=== PATIENT | male | born 1985 | race Caucasian/White ===

== ENCOUNTER 2018-03-17 00:14 | Emergency (ER) | payer OTHER ==
[~2018-03-17] VITALS: Ht 193 cm; Wt 176.9 kg
--- NOTE | ~2018-03-17 | EKG ---
[place], [place] ELECTROCARDIOGRAM REPORT NAME: BLAIR DOW UNIT #: [id number] ROOM: DOCTOR: EPIPHANY DRAFT REPORT BIRTHDATE: [birth year] [facility] Test Date: 2018-03-17 Test Time: 01:43:13 Pat Name: BLAIR DOW Department: ER Room: Gender: Nutritionists: Gildardo Palencia : 1985 Requested By: NOMAN MARES Order Number: [id number] Reading MD: Candido Quesada MD Measurements Intervals [place] Rate: 110 P: 48 [place]: 131 QRS: 24 QRSD: 105 T: -66 QT: 330 QTc: 447 Interpretive Statements Sinus tachycardia LVH Nonspecific repol abnormality, diffuse leads Baseline wander in lead(s) V2 No previous ECG available for comparison Electronically Signed On 03-18-2018 10:45:18 PDT by Candido Quesada MD CM:EKGRPT:ELECTROCARDIOGRAM REPORT [id number] NOMAN BURR DRAFT REPORT NOMAN MARES MD
[~2018-03-17 00:14] MED LIST: AMOXICILLIN500 MG PO; CATAFLAM50 MG PO; CLINDAMYCIN150 MG PO; HYDROCODONE BIT1 T11 PO; LISINOPRIL/HCTZ1 TAB PO; LISINOPRIL10 M1 PO; Motrin,Rufen800 MG PO; NAPROSYN500 MG PO; NICODERM21 MG/24 H T; TRAMADOL HCL50 MG PO; TRIMOX500 MG PO; ZESTORETIC 12.51 TA1 PO; ZESTORETIC 12.51 TA2 PO; ZITHROMAX Z PA250 MG PO; ZOFRAN ODT4 MG SL
[2018-03-17 01:37] LABS: BASO # 0.1 10*3/uL (0.0-0.1); BASO % 0.7 % (0.0-1.0); EOS # 0.4 10*3/uL (0.0-0.4); EOS % 3.2 % (1.0-4.0); HEMATOCRIT 43.9 % (42.0-52.0); HEMOGLOBIN 14.6 g/dl (14.0-18.0); LYMPH % 18.3 % (27.0-41.0); MEAN CELL VOLUME 89.4 fl (80.0-94.0); MEAN CORPUSCULAR HGB 29.7 pg (27.0-31.0); MEAN CORPUSCULAR HGB CONC 33.3 g/dl (33.0-37.0); MEAN PLATELET VOLUME 10.4 fl (9.6-12.3); MONO # 1.1 10*3/uL (0.1-1.0); MONO % 9.7 % (3.0-9.0); NEUT # 7.4 10*3/uL (2.3-7.9); NEUT % 67.6 % (47.0-73.0); PLATELET COUNT AUTOMATED 270 10*3/uL (130-400); RED BLOOD COUNT 4.91 10*6/uL (4.50-5.90); RED CELL DISTRI WIDTH 14.6 % (0-14.5)
[2018-03-17 01:54] LABS: ALBUMIN 3.7 gm/dl (3.1-4.5); ALKALINE PHOSPHATASE 163 U/L (45-117); BUN 17 mg/dl (7-24); CHLORIDE 106 mmol/L (98-107); CREATININE 1.29 mg/dL (0.70-1.30); POTASSIUM 3.9 mmol/L (3.5-5.1); SGOT/AST 17 IU/L (3-35); SGPT/ALT 28 U/L (12-78); SODIUM 140 mmol/L (136-145); TOTAL PROTEIN 8.2 gm/dL (6.4-8.2)
[2018-03-17 01:56] LABS: TROPONIN I < 0.015 ng/ml (<0.045)
[2018-03-17 02:23] VITALS: BP 155/98
[2018-03-17] MEDS ORDERED: ZITHROMAX250 MG PO (02:26)
[2018-03-17] MEDS ORDERED: PROAIR HFA8.5 GM INH (02:26)
[2018-03-17] MEDS ORDERED: PREDNISONE10 MG PO (02:26)
== END 2018-03-17 03:35 | disposition home or self-care (01) ==
LOC: ED 00:14
PROVIDERS: Emergency Medicine Emergency Medical Services
DX: J20.9 Acute bronchitis, unspecified (principal); I10 Essential (primary) hypertension; J45.909 Unspecified asthma, uncomplicated; E78.1 Pure hyperglyceridemia; E66.01 Morbid (severe) obesity due to excess calories; F17.200 Nicotine dependence, unspecified, uncomplicated; Z68.42 Body mass index [BMI] 45.0-49.9, adult; Z98.890 Other specified postprocedural states

== ENCOUNTER 2018-08-21 04:21 | Emergency (ER) | payer OTHER ==
--- NOTE | ~2018-08-21 | EKG ---
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1985 Requested By: NOMAN MARES Order Number: [id number] Reading MD: Althea Montelongo Measurements Intervals [place] Rate: 87 P: 4 [place]: 149 QRS: 3 QRSD: 112 T: 209 QT: 354 QTc: 426 Interpretive Statements Sinus rhythm Borderline intraventricular conduction delay Lateral ST/T CHANGES Compared to ECG 03/17/2018 01:43:13 Possible ischemia now present Sinus tachycardia no longer present Left ventricular hypertrophy no longer present Electronically Signed On 08-27-2018 11:53:54 PST by Althea Montelongo CM:EKGRPT:ELECTROCARDIOGRAM REPORT [id number] NOMAN MARES MD EPIPHANY DRAFT REPORT NOMAN MARES MD
[~2018-08-21 04:21] MED LIST changes: +PREDNISONE10 MG PO; +PROAIR HFA8.5 GM INH; +ZITHROMAX250 MG PO
[2018-08-21 04:50] LABS: BASO # 0.1 10*3/uL (0.0-0.1); BASO % 0.5 % (0.0-1.0); EOS # 0.3 10*3/uL (0.0-0.4); EOS % 2.4 % (1.0-4.0); HEMATOCRIT 49.7 % (42.0-52.0); HEMOGLOBIN 16.4 g/dl (14.0-18.0); LYMPH # 3.5 10*3/uL (1.3-4.4); LYMPH % 30.2 % (27.0-41.0); MEAN CELL VOLUME 90.2 fl (80.0-94.0); MEAN CORPUSCULAR HGB 29.8 pg (27.0-31.0); MEAN PLATELET VOLUME 10.4 fl (9.6-12.3); MONO # 0.8 10*3/uL (0.1-1.0); MONO % 6.5 % (3.0-9.0); NEUT % 59.8 % (47.0-73.0); PLATELET COUNT AUTOMATED 285 10*3/uL (130-400); RED BLOOD COUNT 5.51 10*6/uL (4.50-5.90); RED CELL DISTRI WIDTH 14.4 % (0-14.5); WHITE BLOOD COUNT 11.7 10*3/uL (4.8-10.8)
[2018-08-21 05:00] LABS: ACT PARTIAL THROMBO TIME 28.3 SECONDS (20.8-31.5)
[2018-08-21 05:09] LABS: ALBUMIN 3.8 gm/dl (3.1-4.5); ALKALINE PHOSPHATASE 145 U/L (45-117); BUN 14 mg/dl (7-24); CHLORIDE 108 mmol/L (98-107); CREATININE 1.11 mg/dL (0.70-1.30); LIPASE 105 U/L (73-393); POTASSIUM 3.5 mmol/L (3.5-5.1); SGOT/AST 14 IU/L (3-35); SGPT/ALT 23 U/L (12-78); SODIUM 139 mmol/L (136-145); TOTAL PROTEIN 8.6 gm/dL (6.4-8.2); TROPONIN I < 0.015 ng/ml (<0.045)
[2018-08-21 06:41] LABS: BILIRUBIN NEGATIVE (NEGATIVE); BLOOD NEGATIVE (NEGATIVE); CLARITY CLEAR (CLEAR); COLOR YELLOW (YELLOW); GLUCOSE NEGATIVE (NEGATIVE); KETONE NEGATIVE (NEGATIVE); LEUKO ESTERASE NEGATIVE (NEGATIVE); NITRITE NEGATIVE (NEGATIVE); PH 5.5 (5.0-9.0); SPECIFIC GRAVITY 1.025 (1.005-1.030); UROBILINOGEN 0.2 E.U./dl (0.2-1.0)
[2018-08-21 07:16] LABS: EPITHELIAL CELLS 0-2; MUCOUS 2+; WBC 0-2 wbc/hpf (0-5)
[2018-08-21] MEDS ORDERED: ZESTRIL20 MG PO (07:20)
[2018-08-21 07:42] VITALS: BP 142/94
== END 2018-08-21 07:48 | disposition left against medical advice (07) ==
LOC: ED 04:21
PROVIDERS: Emergency Medicine Emergency Medical Services
DX: I16.0 Hypertensive urgency (principal); J45.909 Unspecified asthma, uncomplicated; E78.2 Mixed hyperlipidemia; F17.210 Nicotine dependence, cigarettes, uncomplicated; E66.01 Morbid (severe) obesity due to excess calories; Z68.42 Body mass index [BMI] 45.0-49.9, adult

== ENCOUNTER 2019-02-25 20:03 | Emergency (ER) | payer OTHER ==
[~2019-02-25] VITALS: Ht 193 cm; Wt 163.3 kg
[~2019-02-25 20:03] MED LIST changes: +ZESTRIL20 MG PO
[2019-02-25 20:04] VITALS: BP 192/120
[2019-02-25] MEDS ORDERED: AUGMENTIN 875875 MG PO (20:32)
== END 2019-02-25 20:43 | disposition home or self-care (01) ==
LOC: ED 20:03
DX: H66.93 Otitis media, unspecified, bilateral (principal); H60.91 Unspecified otitis externa, right ear; F17.200 Nicotine dependence, unspecified, uncomplicated; I10 Essential (primary) hypertension; J45.909 Unspecified asthma, uncomplicated; E78.2 Mixed hyperlipidemia; E66.01 Morbid (severe) obesity due to excess calories; Z68.42 Body mass index [BMI] 45.0-49.9, adult; Z79.899 Other long term (current) drug therapy

== ENCOUNTER 2019-04-13 20:31 | Emergency (ER) | payer OTHER ==
[~2019-04-13] VITALS: Ht 190.5 cm; Wt 167.8 kg
--- NOTE | ~2019-04-13 | EKG ---
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
[~2019-04-13 20:31] MED LIST changes: +AUGMENTIN 875875 MG PO
[2019-04-13 21:19] LABS: BASO # 0.1 10*3/uL (0.0-0.1); BASO % 0.5 % (0.0-1.0); EOS # 0.3 10*3/uL (0.0-0.4); EOS % 2.4 % (1.0-4.0); HEMATOCRIT 45.2 % (42.0-52.0); HEMOGLOBIN 14.8 g/dl (14.0-18.0); LYMPH # 3.6 10*3/uL (1.3-4.4); LYMPH % 27.1 % (27.0-41.0); MEAN CELL VOLUME 91.5 fl (80.0-94.0); MEAN CORPUSCULAR HGB CONC 32.7 g/dl (33.0-37.0); MEAN PLATELET VOLUME 10.4 fl (9.6-12.3); MONO % 7.6 % (3.0-9.0); NEUT # 8.2 10*3/uL (2.3-7.9); NEUT % 61.7 % (47.0-73.0); PLATELET COUNT AUTOMATED 309 10*3/uL (130-400); RED BLOOD COUNT 4.94 10*6/uL (4.50-5.90); RED CELL DISTRI WIDTH 14.7 % (0-14.5); WHITE BLOOD COUNT 13.2 10*3/uL (4.8-10.8)
[2019-04-13 21:29] LABS: ACT PARTIAL THROMBO TIME 29.5 SECONDS (20.0-32.1); INTERNATIONAL NORM RATIO 0.9 (2.0-3.5)
[2019-04-13 21:36] LABS: ALKALINE PHOSPHATASE 139 U/L (45-117); BUN 16 mg/dl (7-24); CHLORIDE 109 mmol/L (98-107); CREATININE 1.24 mg/dL (0.70-1.30); LIPASE 84 U/L (73-393); SGOT/AST 15 IU/L (3-35); SGPT/ALT 23 U/L (12-78); SODIUM 140 mmol/L (136-145); TOTAL PROTEIN 8.3 gm/dL (6.4-8.2)
[2019-04-13 21:39] LABS: TROPONIN I < 0.015 ng/ml (<0.045)
[2019-04-13 23:14] VITALS: BP 187/110
[2019-04-13] MEDS ORDERED: NORVASC5 MG PO (23:56)
[2019-04-13] MEDS ORDERED: AUGMENTIN 875-875 MG PO (23:56)
== END 2019-04-14 00:28 | disposition left against medical advice (07) ==
LOC: ED 20:31
PROVIDERS: Nurse Practitioner Family
DX: L04.0 Acute lymphadenitis of face, head and neck (principal); I10 Essential (primary) hypertension; F17.200 Nicotine dependence, unspecified, uncomplicated; Z79.899 Other long term (current) drug therapy; Z79.2 Long term (current) use of antibiotics

== ENCOUNTER 2019-06-20 04:51 | Emergency (ER) | payer OTHER ==
[~2019-06-20] VITALS: Ht 193 cm; Wt 163.3 kg
--- NOTE | ~2019-06-20 | EKG ---
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
[~2019-06-20 04:51] MED LIST changes: +AUGMENTIN 875-875 MG PO; +NORVASC5 MG PO
[2019-06-20 05:57] LABS: BASO # 0.1 10*3/uL (0.0-0.1); BASO % 0.6 % (0.0-1.0); EOS # 0.4 10*3/uL (0.0-0.4); EOS % 2.8 % (1.0-4.0); HEMATOCRIT 43.7 % (42.0-52.0); HEMOGLOBIN 14.4 g/dl (14.0-18.0); LYMPH # 4.4 10*3/uL (1.3-4.4); LYMPH % 33.4 % (27.0-41.0); MEAN CELL VOLUME 90.3 fl (80.0-94.0); MEAN CORPUSCULAR HGB 29.8 pg (27.0-31.0); MEAN PLATELET VOLUME 10.8 fl (9.6-12.3); MONO # 1.1 10*3/uL (0.1-1.0); NEUT # 7.2 10*3/uL (2.3-7.9); NEUT % 54.6 % (47.0-73.0); PLATELET COUNT AUTOMATED 314 10*3/uL (130-400); RED BLOOD COUNT 4.84 10*6/uL (4.50-5.90); RED CELL DISTRI WIDTH 14.6 % (0-14.5); WHITE BLOOD COUNT 13.2 10*3/uL (4.8-10.8)
[2019-06-20 06:06] LABS: INTERNATIONAL NORM RATIO 0.9 (2.0-3.5)
[2019-06-20 06:16] LABS: ALBUMIN 3.7 gm/dl (3.1-4.5); ALKALINE PHOSPHATASE 158 U/L (45-117); BUN 22 mg/dl (7-24); CHLORIDE 106 mmol/L (98-107); CREATININE 1.37 mg/dL (0.70-1.30); POTASSIUM 3.6 mmol/L (3.5-5.1); SGOT/AST 17 IU/L (3-35); SGPT/ALT 27 U/L (12-78); SODIUM 138 mmol/L (136-145); TOTAL PROTEIN 8.1 gm/dL (6.4-8.2)
[2019-06-20 06:28] LABS: TROPONIN I < 0.015 ng/ml (<0.045)
[2019-06-20 06:30] VITALS: BP 163/91
[2019-06-20] MEDS ORDERED: ZESTRIL20 MG PO (09:21)
[2019-06-20 09:38] LABS: URINE AMPHETAMINES < 1000 (1000ng/ml); URINE BARBITURATES < 200 (200ng/ml); URINE BENZODIAZEPINES < 200 (200ng/ml); URINE CANNABINOIDS (THC) < 50 (50ng/ml); URINE COCAINE < 300 (300ng/ml); URINE METHADONE < 300 (300ng/ml); URINE OPIATES < 300 (300ng/ml)
[2019-06-20 09:42] LABS: URINE PHENCYCLIDINE < 25 (25ng/ml)
== END 2019-06-20 09:32 | disposition left against medical advice (07) ==
LOC: ED 04:51
PROVIDERS: Emergency Medicine
DX: M79.605 Pain in left leg (principal); I10 Essential (primary) hypertension; R22.41 Localized swelling, mass and lump, right lower limb; J45.909 Unspecified asthma, uncomplicated; E78.1 Pure hyperglyceridemia; E66.01 Morbid (severe) obesity due to excess calories; F17.200 Nicotine dependence, unspecified, uncomplicated; Z79.2 Long term (current) use of antibiotics; Z79.899 Other long term (current) drug therapy; Z68.42 Body mass index [BMI] 45.0-49.9, adult

== ENCOUNTER 2021-04-07 17:27 | Emergency (ER) | payer OTHER ==
[~2021-04-07] VITALS: Ht 193 cm; Wt 158.8 kg
[2021-04-07 17:40] VITALS: BP 146/81
== END 2021-04-07 20:33 | disposition left against medical advice (07) ==
LOC: ED 17:27
DX: R00.2 Palpitations (principal); Z53.21 Procedure and treatment not carried out due to patient leaving prior to being seen by health care provider

== ENCOUNTER 2022-01-09 23:21 | Emergency (ER) | payer OTHER ==
[~2022-01-09] VITALS: Ht 193 cm; Wt 181.4 kg
[2022-01-09 23:25] VITALS: BP 168/101
== END 2022-01-10 01:43 | disposition home or self-care (01) ==
LOC: ED 23:21
DX: S93.401A Sprain of unspecified ligament of right ankle, initial encounter (principal); F17.200 Nicotine dependence, unspecified, uncomplicated; X58.XXXA Exposure to other specified factors, initial encounter; Y93.89 Activity, other specified; Y92.89 Other specified places as the place of occurrence of the external cause; Y99.8 Other external cause status

== ENCOUNTER 2022-04-08 23:27 | Emergency (ER) | payer OTHER ==
[2022-04-08 23:37] VITALS: BP 175/86
== END 2022-04-09 00:49 | disposition home or self-care (01) ==
LOC: ED 23:27
DX: F41.9 Anxiety disorder, unspecified (principal); Z79.899 Other long term (current) drug therapy

== ENCOUNTER 2022-05-06 03:28 | Emergency (ER) | payer OTHER ==
[~2022-05-06] VITALS: Ht 190.5 cm; Wt 190.5 kg
[2022-05-06 03:37] VITALS: BP 163/102
[2022-05-06] MEDS ORDERED: PREDNISONE20 M1 PO (04:07)
== END 2022-05-06 04:44 | disposition home or self-care (01) ==
LOC: ED 03:28
DX: M54.16 Radiculopathy, lumbar region (principal)

== ENCOUNTER 2023-01-01 22:31 | Emergency (ER) | payer OTHER ==
[~2023-01-01] VITALS: Ht 193 cm; Wt 186.0 kg
[~2023-01-01 22:31] MED LIST changes: +PREDNISONE20 M1 PO
[2023-01-01] MEDS ORDERED: LIPITOR40 MG PO (22:44)
[2023-01-01] MEDS ORDERED: SYMB160 INH (22:45)
[2023-01-01] MEDS ORDERED: LOSARTAN-HCTZ1 EAC1 PO (22:45)
[2023-01-02] MEDS ORDERED: AMOXICILLIN500 M2 PO (00:47)
[2023-01-02 00:49] LABS: BASO # 0.1 10*3/uL (0.0-0.1); BASO % 0.6 % (0.0-1.0); EOS # 0.3 10*3/uL (0.0-0.4); EOS % 2.3 % (1.0-4.0); HEMATOCRIT 45.1 % (42.0-52.0); LYMPH # 3.6 10*3/uL (1.3-4.4); LYMPH % 28.5 % (27.0-41.0); MEAN CELL VOLUME 90.7 fl (80.0-94.0); MEAN CORPUSCULAR HGB 30.4 pg (27.0-31.0); MEAN CORPUSCULAR HGB CONC 33.5 g/dl (33.0-37.0); MONO # 1.1 10*3/uL (0.1-1.0); MONO % 8.3 % (3.0-9.0); NEUT # 7.6 10*3/uL (2.3-7.9); NEUT % 59.7 % (47.0-73.0); PLATELET COUNT AUTOMATED 343 10*3/uL (130-400); RED BLOOD COUNT 4.97 10*6/uL (4.50-5.90); RED CELL DISTRI WIDTH 14.6 % (0-14.5); WHITE BLOOD COUNT 12.7 10*3/uL (4.8-10.8)
[2023-01-02 00:51] VITALS: BP 175/85
[2023-01-02 01:11] LABS: ALKALINE PHOSPHATASE 167 U/L (46-116); BUN 13 mg/dl (9-23); CHLORIDE 106 mmol/L (98-107); SGPT/ALT 30 U/L (10-49); TOTAL PROTEIN 7.8 gm/dL (6.0-8.0)
== END 2023-01-02 00:53 | disposition home or self-care (01) ==
LOC: ED 22:31
PROVIDERS: Emergency Medicine
DX: H66.93 Otitis media, unspecified, bilateral (principal); I10 Essential (primary) hypertension; F41.9 Anxiety disorder, unspecified; J45.909 Unspecified asthma, uncomplicated; E78.2 Mixed hyperlipidemia; E66.01 Morbid (severe) obesity due to excess calories; F17.200 Nicotine dependence, unspecified, uncomplicated; Z68.42 Body mass index [BMI] 45.0-49.9, adult; Z98.890 Other specified postprocedural states; Z79.899 Other long term (current) drug therapy

== ENCOUNTER 2024-03-08 16:39 | Emergency (ER) | payer SELFPAY ==
[~2024-03-08] VITALS: Ht 193 cm; Wt 186.0 kg
[~2024-03-08 16:39] MED LIST changes: +AMOXICILLIN500 M2 PO; +LIPITOR40 MG PO; +LOSARTAN-HCTZ1 EAC1 PO; +SYMB160 INH
[2024-03-08 17:00] VITALS: BP 155/97
[2024-03-08] MEDS ORDERED: CO Q10100 MG PO (17:01)
[2024-03-08] MEDS ORDERED: BENICAR HCT 401 EAC1 PO (17:01)
[2024-03-08 17:42] LABS: BILIRUBIN Negative (Negative); BLOOD Negative (Negative); CLARITY Clear (Clear); COLOR Yellow (Yellow); GLUCOSE Negative (Negative); KETONE Trace (Negative); LEUKO ESTERASE Trace (Negative); NITRITE Negative (Negative); PH 7.5 (4.5-8.0)
[2024-03-08 17:52] LABS: BACTERIA 1+; MUCOUS 1+; RBC 0-2 rbc/hpf (0-2)
[2024-03-08] MEDS ORDERED: MAGNESIUM CITRATE 296 ML BOT PO ONE (18:10)
[2024-03-09] MEDS ORDERED: METHOCARBAMOL750 M1 PO (04:19)
[2024-03-09] MEDS ORDERED: NAPROSYN500 MG PO (04:19)
== END 2024-03-08 18:19 | disposition home or self-care (01) ==
LOC: ED 16:39
PROVIDERS: Nurse Practitioner Family
DX: K59.00 Constipation, unspecified (principal); J45.909 Unspecified asthma, uncomplicated; E83.41 Hypermagnesemia; I16.0 Hypertensive urgency; F41.9 Anxiety disorder, unspecified; Z79.899 Other long term (current) drug therapy; Z98.890 Other specified postprocedural states; F17.200 Nicotine dependence, unspecified, uncomplicated

== ENCOUNTER 2024-03-09 03:41 | Emergency (ER) | payer SELFPAY ==
[~2024-03-09] VITALS: Ht 193 cm; Wt 158.8 kg
[~2024-03-09 03:41] MED LIST changes: +BENICAR HCT 401 EAC1 PO; +CO Q10100 MG PO
[2024-03-09 03:57] VITALS: BP 172/94
[2024-03-09] MEDS ORDERED: METHOCARBAMOL 500 MG TAB PO ONE (04:00)
[2024-03-09] MEDS ORDERED: Ketorolac Tromethamine 60 MG/2 ML VIAL IM ONE (04:00)
[2024-03-09] MEDS ORDERED: METHOCARBAMOL750 M1 PO (04:19)
[2024-03-09] MEDS ORDERED: NAPROSYN500 MG PO (04:19)
== END 2024-03-09 04:27 | disposition home or self-care (01) ==
LOC: ED 03:41
DX: S39.012A Strain of muscle, fascia and tendon of lower back, initial encounter (principal); K59.00 Constipation, unspecified; E66.9 Obesity, unspecified; F17.200 Nicotine dependence, unspecified, uncomplicated; Z79.899 Other long term (current) drug therapy; Z98.890 Other specified postprocedural states; X58.XXXA Exposure to other specified factors, initial encounter; Y93.89 Activity, other specified; Y92.89 Other specified places as the place of occurrence of the external cause; Y99.8 Other external cause status

== ENCOUNTER 2025-04-13 18:42 | Emergency (ER) | payer SELFPAY ==
[~2025-04-13] VITALS: Ht 193 cm; Wt 181.4 kg
[~2025-04-13 18:42] MED LIST changes: +METHOCARBAMOL750 M1 PO
[2025-04-13 19:04] VITALS: BP 163/98
[2025-04-13] MEDS ORDERED: Tdap Vaccine 0.5 ML SYR (Adult Vaccine) IM ONE (19:20)
[2025-04-13] MEDS ORDERED: Lidocaine Hydrochloride 5 ML AMP SC ONE (19:20)
== END 2025-04-13 20:11 | disposition home or self-care (01) ==
LOC: ED 18:42
DX: S61.012A Laceration without foreign body of left thumb without damage to nail, initial encounter (principal); F17.200 Nicotine dependence, unspecified, uncomplicated; Z79.899 Other long term (current) drug therapy; Z98.890 Other specified postprocedural states; W26.8XXA Contact with other sharp object(s), not elsewhere classified, initial encounter; Y93.89 Activity, other specified; Y92.59 Other trade areas as the place of occurrence of the external cause; Y99.8 Other external cause status